=== PATIENT | male | born 1960 | race Caucasian/White ===

== ENCOUNTER 2022-02-09 13:30 | Emergency (ER) | payer BC ==
--- OUTSIDE RECORDS SUMMARY | 2022-02-09 13:35 | XMS REPORT | Continuity of Care Document ---
:1960 Author Organization [facility] t Address [address] [place] [address] Care Team Providers Name Role Phone PCP, PATIENT DOES NOT HAVE A Primary Care Physician Unavaila ble Only, Ang Db Test Attending Clinician Unavailable Ebrenny DIE PRESS OPERATORMelissa Attending Clinician EBMELISSA MILLARD Attending Clinician Unavailable Doctor Unassigned, [place] Attending Clinician Unavailable Provider, [facility] Attending Clinician Unavailable June DIE PRESS OPERATORBrandie Attending Clinician BRANDIE WATKINS Attending Clinician Unavailable Payers Payer Name Policy Type Policy Number Effective Date Expiration Date S ource Problems Condition Condition Condition Status Onset Resolution Last Treating Co mments Source Name Details Category Date Date Treatment Clinician Date No known No known Disease Unive rs active active ity of problems problems [facility] Allergies, Adverse Reactions, Alerts Allergy Allergy Status Severity Reaction(s) Onset Inactive Treating Comm ents Source Name Type Date Date Clinician NO KNOWN Drug Active Univers ALLERGIE Class ity of S [facility] Social History Social Habit Start Date Stop Date Quantity Comments Source History SDWV University o f Alcohol Comment [place] [facility] Exposure to Not sure University SARS-CoV-2 [facility] (event) Branch Tobacco use and 2020-08-07 2020-08-07 Never used Universit y of exposure 00:00:00 00:00:00 [facility] Alcohol intake 2020-08-07 2020-08-07 Ex-drinker University 00:00:00 00:00:00 (finding) [facility] History SDOH 2020-08-07 2020-08-07 1 University o f Alcohol Frequency 00:00:00 00:00:00 [place] [facility] History SDOH 2020-08-07 2020-08-07 99 [place] o f Alcohol Std 00:00:00 00:00:00 [place] [facility] History SDOH 2020-08-07 2020-08-07 1 [place] o f Alcohol Binge 00:00:00 00:00:00 [facility] al Branch Sex Ass[birth year] At [birth year] Universit y of 00:00:00 00:00:00 [facility] Smoking Status Start Date Stop Date Source Never smoker [facility] Branch Medications Ordered Filled Start Stop Current Ordering Indication Dosage Frequency Signature Comments Components Source Medication Medication Date Date Medication? Clinician (SIG) Name Name No known No Univers medications -30 ity of 16:07: [address] No known No Univers medications -30 ity of 16:07: [address] No known No Univers medications it of [facility] Vital Signs Vital Name Observation Time Observation Value Comments Source Systolic blood 2020-08-07 21:58:00 127 mm[Hg] Univer sity of [facility] Diastolic blood 2020-08-07 21:58:00 77 mm[Hg] Unive rsity of [facility] Heart rate 2020-08-07 21:58:00 91 /min [facility] Body temperature 2020-08-07 21:58:00 36.72 [facility]ata [facility] Respiratory rate 2020-08-07 21:58:00 18 /min [facility] Body height 2020-08-07 21:58:00 167.6 cm [facility] Body weight 2020-08-07 21:58:00 74.844 kg [facility] BMI 2020-08-07 21:58:00 26.63 kg/m2 [facility] Oxygen saturation in 2020-08-07 21:58:00 96 /min [facility] Arterial blood by [facility] Pulse oximetry Branch Procedures Procedure Date / Time Performed Performing Clinician Vanessa reynoso CONSENT/REFUSAL FOR 2021-08-10 17:48:14 Doctor Unassigned, No Un [facility] DIAGNOSIS AND Name Medical Branch TREATMENT Encounters Start End Encounter Admission Attending Care Care Encounter Source Date/Time Date/Time Type Type Clinicians Facility Department ID 2021-08-10 2021-08-10 Laboratory Only, Sonido Db Test [facility] [id number] Univers 12:00:00 12:15:00 Only Melissa Garcia [facility] [id number] ity of [place] [id number] Arash as MCKENZIE?BLEA [phone] Sd dical SHANICEEY [address] [employer] [employer] 2021-08-10 2021-08-10 Outpatient R [facility] [id number] Univers 12:00:00 12:00:00 [id number] ity [facility] 2021-08-10 2021-08-10 Outpatient R CORKY [facility] [id number] Univers 12:00:00 11:56:47 MELISSA [facility] 2021-08-10 2021-08-10 Orders Doctor LINSEY [id number] Univers 00:00:00 00:00:00 Only Unassigned, BRAVO [id number] ity of [place] [facility] [id number] Arash as [id number] [address] 2020-08-07 2020-08-07 Urgent Provider, [facility] [id number] Univers 15:51:02 16:49:11 [facility] [employer] [id number] ity of [place] [id number] Arash as Professio [phone] Sd tomas [facility] [address] 2020-08-07 2020-08-07 [facility] [id number] Univers 16:00:00 16:00:00 [facility] Results This patient has no known results.
[2022-02-09 14:25] LABS: Urine Blood Negative (Negative); Urine Glucose Negative (Negative); Urine Protein Negative (Negative); Urine Specific Gravity 1.015 (1.005-1.030)
[2022-02-09 14:38] LABS: Absolute Lymphocytes (CBC) 1.8 K/uL (0.7-4.9); Lymphocytes % 27.7 % (15.3-44.8); MCV 88.2 fL (80-100); MPV 8.5 fL (7.6-11.3); RBC Red Blood Cell Count 4.31 M/uL (4.33-5.43)
[2022-02-09 14:56] LABS: Bilirubin Total 0.2 mg/dL (0.2-1.0); Potassium 3.9 mmol/L (3.5-5.1); Protein, Total 7.9 g/dL (6.4-8.2)
--- NOTE | 2022-02-09 15:53 | RAD REPORT ---
EXAM DESCRIPTION: CT - Abdomen Pelvis W Contrast - 02/09/2022 3:35 pm CLINICAL HISTORY: GI bleed COMPARISON: No comparisons TECHNIQUE: Biphasic, helical CT imaging of the abdomen and pelvis was performed following 100 ml non -ionic IV contrast. No oral contrast administered. All CT scans are performed using dose optimization technique as appropriate and may include automated exposure control or mA/KV adjustment according to patient size. FINDINGS: No suspicious findings in the lung bases. The liver, spleen, and pancreas show no suspicious findings. Liver attenuation is borderline to mildl y fatty infiltrated. Gallbladder is absent. No abnormal biliary tree dilatation. Symmetric renal function is seen with no hydronephrosis or suspicious renal mass. A 2.3 centimeter si mple cyst is present upper pole of the left kidney. No pyelonephritis or acute parenchymal process. N o bladder abnormalities. No adrenal abnormalities. No dilated bowel loops or bowel wall thickening. In the rectum and sigmoid region there is no wall th ickening, edema or other abnormality to explain rectal bleeding history. The appendix is normal. No f ree air, free fluid or inflammatory stranding. Small bilateral fat filled inguinal hernias are prese nt. No suspicious bony findings. IMPRESSION: Contrast enhanced CT abdomen and pelvis showing no acute or emergent finding.
--- NOTE | 2022-02-09 16:34 | ER ---
Nurse's Notes [facility] Name: Bandar Roa Age: 61 yrs Sex: Male : 1960 Arrival Date: 02/09/2022 Time: 13:33 Bed 26 Private MD: Kahlil Pearl Diagnosis: Rectal bleeding Presentation: 02/09 14:04 Chief complaint: Patient states: Rectal bleeding X 3 days. Pt reports blood saturating eh3 toilet water and in stool. Went to see Dr. Pearl - front desk officer told me to come to ER when I told them what was going on. Coronavirus screen: At this time, the client does not indicate any symptoms associated with coronavirus-19. Ebola Screen: No symptoms or risks identified at this time. Initial Sepsis Screen: Does the patient meet any 2 criteria? No. Patient's initial sepsis screen is negative. Does the patient have a suspected source of infection? No. Patient's initial sepsis screen is negative. Risk Assessment: Do you want to hurt yourself or someone else? Patient reports no desire to harm self or others. Onset of symptoms was February 09, 2022. 14:04 Method Of Arrival: Ambulatory 3 14:04 Acuity: CANDE 3 eh3 Triage Assessment: 14:05 General: Appears in no apparent distress. comfortable, Behavior is calm, cooperative, eh3 appropriate for age. Pain: Complains of pain in left low back Pain does not radiate. Pain currently is 5 out of 10 on a pain scale. Quality of pain is described as shooting, Pain began 2-3 days ago. Is intermittent. EENT: No signs and/or symptoms were reported regarding the EENT system. Neuro: Level of Consciousness is awake, alert, obeys commands, Oriented to person, place, time, situation. Cardiovascular: Capillary refill < 3 seconds Patient's skin is warm and dry. Respiratory: Airway is patent Respiratory effort is even, unlabored. GI: Abdomen is round non-distended, Stools are reported to be loose, Reports diarrhea, rectal bleeding, bloody stool. Historical: - Allergies: 14:05 No Known Allergies; eh3 - PMHx: 14:05 Irritable bowel syndrome; Hypertensive disorder; Hypercholesterolemia; eh3 - PSHx: 14: Cholecystectomy; eh3 - Immunization history:: Adult Immunizations up to date, Client reports receiving the 2nd dose of the Covid vaccine. - Social history:: Smoking status: Patient denies any tobacco usage or history of. Patient/guardian denies using alcohol. Screenin:34 Abuse screen: Denies threats or abuse. Denies injuries from another. Nutritional hb screening: No deficits noted. Tuberculosis screening: No symptoms or risk factors identified. Fall Risk None identified. Assessment: 15:01 General: Appears in no apparent distress. hb 15:01 Pain: Pain currently is 3 out of 10 on a pain scale. Neuro: Level of Consciousness is hb awake, alert, obeys commands, Oriented to person, place, time, situation. Cardiovascular: Patient's skin is warm and dry. Respiratory: Respiratory effort is even, unlabored, Respiratory pattern is regular, symmetrical. GI: Reports lower abdominal pain, upper abdominal pain, bloody stool. : No signs and/or symptoms were reported regarding the genitourinary system. EENT: No signs and/or symptoms were reported regarding the EENT system. Derm: Skin is pink, warm \T\ dry. Musculoskeletal: No signs and/or symptoms reported regarding the musculoskeletal system. 16:29 Reassessment: Patient appears in no apparent distress at this time. Patient and/or hb family updated on plan of care and expected duration. Pain level reassessed. Patient is alert, oriented x 3, equal unlabored respirations, skin warm/dry/pink. Vital Signs: 14:04 BP 132 / 82; Pulse 86; Resp 18; Temp 98.0(TE); Pulse Ox 98% on R/A; Weight 74.84 kg; 3 Height 5 ft. 6 in. (167.64 cm); Pain 5/10; 15:59 BP 130 / 90; Pulse 75; Resp 16; Pulse Ox 97% on R/A; hb 16:29 BP 130 / 84; Pulse 71; Pulse Ox 99% on R/A; hb 14:04 Body Mass Index 26.63 (74.84 kg, 167.64 cm) 3 ED Course: 13:33 Patient arrived in ED. mr 13:33 Kahlil Pearl MD is Private Physician. mr 14:05 Triage completed. 3 14:05 Arm band placed on left wrist. [facility] 14:17 Hanny Pickett, TONE is Primary Nurse. hb 14:19 Inserted saline lock: 20 gauge in right antecubital area, using aseptic technique. eh3 14:34 Patient has correct armband on for positive identification. hb 14:37 Moo Plummer MD is Attending Physician. kdr 15:37 CT Abd/Pelvis - IV Contrast Only In Process Unspecified. EDMS 16:32 Kahlil Pearl MD is Referral Physician. kdr 16:51 No provider procedures requiring assistance completed. IV discontinued, intact, hb bleeding controlled, No redness/swelling at site. Administered Medications: No medications were administered Medication: 15:01 VIS not applicable for this client. hb Outcome: 16:34 Discharge ordered by . kdr 16:51 Discharged to home ambulatory. hb 16:51 Condition: stable 16:51 Discharge instructions given to patient, Instructed on discharge instructions, follow up and referral plans. Demonstrated understanding of instructions, follow-up care. 16:52 Patient left the ED. hb Signatures: Dispatcher [employer] EDME Moo Plummer MD MD [facility] Yocasta Nielsen mr Hanny Pickett RN RN Graciela Hernández 3
--- NOTE | 2022-02-09 16:34 | EDPHYS ---
Physician Documentation [facility] Name: Bandar Roa Age: 61 yrs Sex: Male : 1960 Arrival Date: 02/09/2022 Time: 13:33 Bed 26 Private MD: Kahlil Pearl ED Physician Moo Plummer HPI: 02/10 08:55 This 61 yrs old Male presents to ER via Ambulatory with complaints of Rectal Bleeding. kdr 08:55 Patient states that he has had bleeding from his rectum for the past 3 days. He had kdr that his toilet water has been heavily colored with the blood. He attempted to follow-up with his primary care but they told him to come to the ER. Patient is nonacute and nontoxic-appearing in the ED at this initial presentation. Onset: The symptoms/episode began/occurred gradually, 3 day(s) ago. Severity of symptoms: At their worst the symptoms were mild in the emergency department the symptoms are unchanged. The patient has not experienced similar symptoms in the past. The patient has not recently seen a physician. Patient has a history of colitis and hemorrhoids. The blood has been both bright red and somewhat darker. No obvious melena. Denies abdominal pain, nausea or vomiting. He nontoxic-appearing at this time. Historical: - Allergies: 02/09 14:05 No Known Allergies; eh3 - PMHx: 14:05 Irritable bowel syndrome; Hypertensive disorder; Hypercholesterolemia; eh3 - PSHx: 14:05 Cholecystectomy; eh3 - Immunization history:: Adult Immunizations up to date, Client reports receiving the 2nd dose of the Covid vaccine. - Social history:: Smoking status: Patient denies any tobacco usage or history of. Patient/guardian denies using alcohol. ROS: 02/10 08:55 Constitutional: Negative for fever, chills, and weight loss, Eyes: Negative for injury, kdr pain, redness, and discharge, ENT: Negative for injury, pain, and discharge, Neck: Negative for injury, pain, and swelling, Cardiovascular: Negative for chest pain, palpitations, and edema, Respiratory: Negative for shortness of breath, cough, wheezing, and pleuritic chest pain, Back: Negative for injury and pain, : Negative for injury, bleeding, discharge, and swelling, MS/Extremity: Negative for injury and deformity, Skin: Negative for injury, rash, and discoloration, Neuro: Negative for headache, weakness, numbness, tingling, and seizure activity. Psych: Negative for depression, anxiety, suicide ideation, homicidal ideation, and hallucinations, Allergy/Immunology: Negative for hives, rash, and allergies, Endocrine: Negative for neck swelling, polydipsia, polyuria, polyphagia, and marked weight changes, Hematologic/Lymphatic: Negative for swollen nodes, abnormal bleeding, and unusual bruising. Abdomen/GI: Positive for abdominal pain, nausea, rectal bleeding. Exam: 08:55 Constitutional: This is a well developed, well nourished patient who is awake, alert, kdr and in no acute distress. Head/Face: Normocephalic, atraumatic. Eyes: Pupils equal round and reactive to light, extra-ocular motions intact. Lids and lashes normal. Conjunctiva and sclera are non-icteric and not injected. Cornea within normal limits. Periorbital areas with no swelling, redness, or edema. Neck: Trachea midline, no thyromegaly or masses palpated, and no cervical lymphadenopathy. Supple, full range of motion without nuchal rigidity, or vertebral point tenderness. No Meningismus. Chest/axilla: Normal chest wall appearance and motion. Nontender with no deformity. No lesions are appreciated. Cardiovascular: Regular rate and rhythm with a normal S1 and S2. No gallops, murmurs, or rubs. Normal PMI, no JVD. No pulse deficits. Respiratory: Lungs have equal breath sounds bilaterally, clear to auscultation and percussion. No rales, rhonchi or wheezes noted. No increased work of breathing, no retractions or nasal flaring. Back: No spinal tenderness. No costovertebral tenderness. Full range of motion. Skin: Warm, dry with normal turgor. Normal color with no rashes, no lesions, and no evidence of cellulitis. MS/ Extremity: Pulses equal, no cyanosis. Neurovascular intact. Full, normal range of motion. Neuro: Awake and alert, GCS 15, oriented to person, place, time, and situation. Cranial nerves II-XII grossly intact. Motor strength 5/5 in all extremities. Sensory grossly intact. Cerebellar exam normal. Normal gait. Psych: Awake, alert, with orientation to person, place and time. Behavior, mood, and affect are within normal limits. 08:55 Abdomen/GI: Inspection: abdomen appears normal, Bowel sounds: normal, active, Palpation: soft, nontender, Rectal exam: rectal tone normal, Stool: guaiac positive, hemorrhoid(s), internal, without bleeding, without pain. Vital Signs: 02/09 14:04 BP 132 / 82; Pulse 86; Resp 18; Temp 98.0(TE); Pulse Ox 98% on R/A; Weight 74.84 kg; eh3 Height 5 ft. 6 in. (167.64 cm); Pain 5/10; 15:59 BP 130 / 90; Pulse 75; Resp 16; Pulse Ox 97% on R/A; hb 16:29 BP 130 / 84; Pulse 71; Pulse Ox 99% on R/A; hb 14:04 Body Mass Index 26.63 (74.84 kg, 167.64 cm) eh3 MDM: 16:34 Patient medically screened. kdr 02/10 08:55 Data reviewed: vital signs, nurses notes, lab test result(s), radiologic studies. kdr Counseling: I had a detailed discussion with the patient and/or guardian regarding: the historical points, exam findings, and any diagnostic results supporting the discharge/admit diagnosis, lab results, radiology results, the need for outpatient follow up. 02/09 14:08 Order name: CBC with Diff; Complete Time: 15:14 3 02/09 14:08 Order name: CMP; Complete Time: 15:14 3 02/09 14:08 Order name: Lipase; Complete Time: 15:14 3 02/09 14:10 Order name: T\T\S; Complete Time: 15:14 eb 02/09 14:25 Order name: Urine Dipstick-Ancillary; Complete Time: 15:14 EDMS 02/09 15:14 Order name: CT Abd/Pelvis - IV Contrast Only; Complete Time: 16:13 kdr 02/09 14:08 Order name: IV Saline Lock; Complete Time: 14:18 3 02/09 14:08 Order name: Labs collected and sent; Complete Time: 14:18 3 02/09 14:08 Order name: Urine Dipstick-Ancillary (obtain specimen); Complete Time: 14:30 eh3 Administered Medications: No medications were administered Disposition Summary: 02/09/22 16:34 Discharge Ordered Location: Home kdr Problem: new kdr Symptoms: have improved kdr Condition: Stable kdr Diagnosis - Rectal bleeding kdr Followup: kdr - With: Kahlil Pearl MD - When: 2 - 3 days - Reason: If symptoms return, Further diagnostic work-up, Recheck today's complaints, Continuance of care, Re-evaluation by your physician Discharge Instructions: - Discharge Summary Sheet kdr - Rectal Bleeding, [id number] kdr Forms: - Medication Reconciliation Form kdr - Thank You Letter kdr Signatures: Dispatcher [employer] Moo Babcock MD MD kdr Graciela Hernández 3
[2022-02-09 17:44] VITALS: TEMP 98
[2022-02-09 17:49] VITALS: BP 130/84; O2SAT 99
== END 2022-02-09 16:52 | disposition home or self-care (01) ==
LOC: ER 13:30
DX: K62.5 Hemorrhage of anus and rectum (principal); I10 Essential (primary) hypertension
CPT/HCPCS: 85025; 36415; 86900; 86850; 86901; 81003; 83690; 80053; 74177; 99283; Q9967